=== PATIENT | female | born 1980 | race Caucasian/White ===

== ENCOUNTER 2016-07-04 15:50 | Emergency (ER) | payer MEDICAID ==
[2016-07-04] MEDS ORDERED: LIDOCAINE 2% 10 ML MDV ONE (16:41)
== END 2016-07-04 17:35 | disposition home or self-care (01) ==
DX: N76.0 Acute vaginitis (principal); B96.89 Other specified bacterial agents as the cause of diseases classified elsewhere; R03.0 Elevated blood-pressure reading, without diagnosis of hypertension